=== PATIENT | female | born 1990 | race Caucasian/White ===

== ENCOUNTER 2018-01-09 22:50 | Inpatient (IN) | payer MEDICAID, OTHER ==
[~2018-01-09] VITALS: Ht 167.6 cm; Wt 115.2 kg
[~2018-01-09 22:50] MED LIST: ARIP15TA2 PO; BUPR-93 PO
[2018-01-09] MEDS ORDERED: HYDR50CA10 PO (23:19)
[2018-01-09] MEDS ORDERED: LURA20TA PO (23:19)
[2018-01-09] MEDS ORDERED: GABA-531 PO (23:19)
[2018-01-09 23:25] LABS: BASOPHILS % (AUTO) 0.7 % (0.0-2.0); EOSINOPHILS % (AUTO) 4.2 % (1.0-6.0); HEMATOCRIT 35.6 % (36-46); HEMOGLOBIN 12.2 g/dL (12.0-16.0); LYMPHOCYTES # (AUTO) 2.5 K/uL (1.0-4.8); LYMPHOCYTES % (AUTO) 31.1 % (22.0-44.0); MEAN CORPUSCULAR HEMOGLOBIN 28.2 pg (26.0-34.0); MEAN CORPUSCULAR HGB CONC 34.3 G/dL (31.0-37.0); MEAN CORPUSCULAR VOLUME 82 fL (80-100); MONOCYTES # (AUTO) 0.6 K/uL (0.1-1.0); MONOCYTES % (AUTO) 7.7 % (2.0-9.0); NEUTROPHILS # (AUTO) 4.5 K/uL (1.8-7.7); NEUTROPHILS % (AUTO) 56.3 % (40.0-70.0); PLATELET COUNT (AUTO) 345 K/uL (150-450); RED BLOOD CELL COUNT(AUTO) 4.32 MIL/uL (4.00-5.20); RED CELL DISTRIBUTION WIDTH 13.6 % (11.5-14.5)
[2018-01-09 23:32] LABS: AMPHET/METH SCREEN,URINE NEGATIVE (NEGATIVE); BARBITURATE SCREEN, URINE NEGATIVE (NEGATIVE); BENZODIAZEPINES SCREEN,URINE NEGATIVE (NEGATIVE); CANNABINOID SCREEN,URINE NEGATIVE (NEGATIVE); COCAINE SCREEN,URINE NEGATIVE (NEGATIVE); METHADONE SCREEN, URINE NEGATIVE (NEGATIVE); OPIATE SCREEN,URINE NEGATIVE (NEGATIVE)
[2018-01-09 23:33] LABS: ANION GAP 6 mmol/L (8-16); CALCIUM, TOTAL 8.5 mg/dL (8.8-10.5); CARBON DIOXIDE 28 mmol/L (22-29); CHLORIDE 105 mmol/L (98-107); CREATININE 0.74 mg/dL (0.60-1.30); GLOMERULAR FILTR. RATE CALC > 60 mL/min (>60); GLUCOSE,RANDOM 105 mg/dL (70-110); POTASSIUM 3.9 mmol/L (3.5-5.1); SODIUM SERUM 139 mmol/L (136-145); UREA NITROGEN, BLOOD 11 mg/dL (7-18)
[2018-01-09 23:34] LABS: PHENCYCLIDINE SCREEN,URINE NEGATIVE (NEGATIVE)
[2018-01-09 23:40] LABS: ALANINE AMINOTRANSFERASE 37 U/L (12-78); ALBUMIN 3.4 g/dL (3.4-5.0); ALKALINE PHOSPHATASE 54 U/L (46-116); ASPARTATE AMINOTRANSFERASE 21 U/L (15-37); BILIRUBIN,TOTAL 0.2 mg/dL (0.1-1.0); TOTAL PROTEIN, SERUM 7.1 g/dL (6.4-8.2)
[2018-01-09 23:55] LABS: ACETAMINOPHEN < 2 mcg/mL (10-30)
[2018-01-09 23:57] LABS: SALICYLATE < 2.8 mg/dL (2.8-20.0)
[2018-01-10] MEDS ORDERED: LORazepam 2 MG TABLET PO PRN (00:15)
[2018-01-10] MEDS ORDERED: MAG HYDROX/AL HYDROX/SIMETH ES 30 ML SUSPENSION UDCUP PO PRN (00:15)
[2018-01-10] MEDS ORDERED: HALOPERIDOL 5 MG TABLET PO PRN (00:15)
[2018-01-10] MEDS ORDERED: ACETAMINOPHEN 325 MG TABLET PO PRN (00:15)
[2018-01-10] MEDS ORDERED: ZOLPIDEM TARTRATE 10 MG TABLET PO PRN (00:15)
[2018-01-10] MEDS ORDERED: MAGNESIUM HYDROXIDE SUSPENSION 30 ML UDCUP PO PRN (00:15)
[2018-01-10] MEDS ORDERED: ACETAMINOPHEN 325 MG TABLET PO ONE (14:15)
[2018-01-10 18:42] VITALS: BP 115/64
[2018-01-10] MEDS ORDERED: ALBUTEROL SULFATE HFA 90 MCG/PUFF 8 GM INHALER IH PRN (19:30)
[2018-01-10] MEDS ORDERED: BACITRACIN 28.4 GM OINTMENT TP PRN (19:30)
[2018-01-10] MEDS ORDERED: PNEUMOCOCCAL VACCINE POLYVALENT 0.5 ML VIAL [PPSV23] IM ONE (19:30)
[2018-01-10] MEDS: MIRTAZAPINE 15 MG TABLET PO SCH (20:54)
[2018-01-11 05:43] VITALS: BP 117/74
[2018-01-11 08:09] LABS: CHOL/HDL RATIO 4.4 (3.9-5.7)
[2018-01-11 08:24] VITALS: BP 122/68
[2018-01-11] MEDS: GABAPENTIN 300 MG CAPSULE PO SCH ×2 (10:12→16:12)
[2018-01-11] MEDS: BuPROPion HCL XL 150 MG ER TABLET PO SCH (10:12)
[2018-01-11] MEDS: ARIPiprazole 5 MG TABLET PO SCH (10:12)
[2018-01-11] MEDS ORDERED: ONDANSETRON HCL 4 MG TABLET PO PRN (14:15)
[2018-01-11] MEDS ORDERED: DOCUSATE SODIUM 100 MG CAPSULE PO PRN (14:15)
[2018-01-11] MEDS ORDERED: IBUPROFEN 400 MG TABLET PO PRN (14:15)
[2018-01-11] MEDS ORDERED: PETROLATUM,WHITE 71 GM JELLY TP PRN (14:15)
[2018-01-11 16:37] VITALS: BP 117/68
[2018-01-11] MEDS: MIRTAZAPINE 15 MG TABLET PO SCH (20:12)
[2018-01-11] MEDS: HydrOXYzine PAMOATE 50 MG CAPSULE PO SCH (20:12)
[2018-01-12 06:22] VITALS: BP 126/74
[2018-01-12 08:38] VITALS: BP 131/74
[2018-01-12] MEDS: GABAPENTIN 300 MG CAPSULE PO SCH ×2 (08:42→16:34)
[2018-01-12] MEDS: BuPROPion HCL XL 150 MG ER TABLET PO SCH (08:42)
[2018-01-12] MEDS: ARIPiprazole 5 MG TABLET PO SCH (08:42)
[2018-01-12] MEDS: NICOTINE 14 MG/24 HOUR PATCH TD SCH (08:42)
[2018-01-12 16:07] VITALS: BP 112/85
[2018-01-12] MEDS: MIRTAZAPINE 30 MG TABLET PO SCH (20:25)
[2018-01-12] MEDS: HydrOXYzine PAMOATE 50 MG CAPSULE PO SCH (20:26)
[2018-01-13 03:30] VITALS: BP 122/82
[2018-01-13 08:36] VITALS: BP 119/78
[2018-01-13] MEDS: NICOTINE 14 MG/24 HOUR PATCH TD SCH (09:00)
[2018-01-13] MEDS: ARIPiprazole 5 MG TABLET PO SCH (09:03)
[2018-01-13] MEDS: BuPROPion HCL XL 150 MG ER TABLET PO SCH (09:04)
[2018-01-13] MEDS: GABAPENTIN 300 MG CAPSULE PO SCH ×2 (09:04→16:07)
[2018-01-13 16:09] VITALS: BP 133/78
[2018-01-13] MEDS: HydrOXYzine PAMOATE 50 MG CAPSULE PO SCH (20:16)
[2018-01-13] MEDS: MIRTAZAPINE 30 MG TABLET PO SCH (20:16)
[2018-01-14 00:42] VITALS: BP 124/76
[2018-01-14] MEDS ORDERED: MIRT30 PO (06:22)
[2018-01-14] MEDS ORDERED: BUPR-93 PO (06:23)
[2018-01-14] MEDS ORDERED: ARIP5TAB8 PO (06:23)
[2018-01-14 08:00] VITALS: BP 132/77
[2018-01-14] MEDS: ARIPiprazole 5 MG TABLET PO SCH (08:29)
[2018-01-14] MEDS: GABAPENTIN 300 MG CAPSULE PO SCH (08:29)
[2018-01-14] MEDS: BuPROPion HCL XL 150 MG ER TABLET PO SCH (08:29)
[2018-01-14] MEDS: NICOTINE 14 MG/24 HOUR PATCH TD SCH (08:30)
== END 2018-01-14 10:45 | disposition home or self-care (01) | DRG 751 ==
LOC: EDBD 22:51 → EMS 22:51 → B2S 01-10 17:25
PROVIDERS: ADMIT Psychiatry & Neurology Psychiatry; ATTEND Psychiatry & Neurology Psychiatry
PROC: 3E0234Z Introduction of Serum, Toxoid and Vaccine into Muscle, Percutaneous Approach (ICD-10-PCS; principal; 2018-01-10)
DX: F33.3 Major depressive disorder, recurrent, severe with psychotic symptoms (principal); F41.9 Anxiety disorder, unspecified; F17.200 Nicotine dependence, unspecified, uncomplicated; T42.6X2A Poisoning by other antiepileptic and sedative-hypnotic drugs, intentional self-harm, initial encounter; F12.90 Cannabis use, unspecified, uncomplicated; G47.00 Insomnia, unspecified; J45.909 Unspecified asthma, uncomplicated; F60.3 Borderline personality disorder; K59.09 Other constipation; S51.811A Laceration without foreign body of right forearm, initial encounter; X78.9XXA Intentional self-harm by unspecified sharp object, initial encounter; Y92.89 Other specified places as the place of occurrence of the external cause; Z91.5 Personal history of self-harm; Z23 Encounter for immunization; Z79.899 Other long term (current) drug therapy; Z71.6 Tobacco abuse counseling
CPT/HCPCS: 84443; 93005; 99285; G0480; G0481

== ENCOUNTER 2023-03-17 03:22 | Inpatient (IN) | payer MEDICAID, OTHER ==
[~2023-03-17] VITALS: Ht 170.2 cm; Wt 129.3 kg
[~2023-03-17 03:22] MED LIST changes: -ARIP15TA2 PO; +ARIP5TAB37 PO; +BUPR-50 PO; -BUPR-93 PO; +GABA-1181 PO; +HYDR50CA7 PO; +MIRT-149 PO
[2023-03-17] MEDS ORDERED: DiphenhydrAMINE HCL 25 MG CAPSULE PO ONE (04:00)
[2023-03-17] MEDS ORDERED: LORazepam 2 MG TABLET PO ONE (04:00)
[2023-03-17 04:12] LABS: AMPHET/METH SCREEN,URINE NEGATIVE (NEGATIVE); BARBITURATE SCREEN, URINE NEGATIVE (NEGATIVE); BENZODIAZEPINES SCREEN,URINE NEGATIVE (NEGATIVE); CANNABINOID SCREEN,URINE POSITIVE (NEGATIVE); COCAINE SCREEN,URINE NEGATIVE (NEGATIVE); METHADONE SCREEN, URINE NEGATIVE (NEGATIVE); OPIATE SCREEN,URINE NEGATIVE (NEGATIVE); PHENCYCLIDINE SCREEN,URINE NEGATIVE (NEGATIVE)
[2023-03-17 04:18] LABS: BASOPHILS % (AUTO) 1.3 % (0.0-2.0); EOSINOPHILS % (AUTO) 1.3 % (1.0-6.0); HEMATOCRIT 37.8 % (36-46); HEMOGLOBIN 12.6 g/dL (12.0-16.0); LYMPHOCYTES # (AUTO) 2.1 K/uL (1.0-4.8); LYMPHOCYTES % (AUTO) 20.3 % (22.0-44.0); MEAN CORPUSCULAR HEMOGLOBIN 27.9 pg (26.0-34.0); MEAN CORPUSCULAR HGB CONC 33.4 G/dL (31.0-37.0); MEAN CORPUSCULAR VOLUME 84 fL (80-100); MONOCYTES # (AUTO) 0.6 K/uL (0.1-1.0); MONOCYTES % (AUTO) 5.8 % (2.0-9.0); NEUTROPHILS # (AUTO) 7.3 K/uL (1.8-7.7); NEUTROPHILS % (AUTO) 71.3 % (40.0-70.0); PLATELET COUNT (AUTO) 383 K/uL (150-450); RED BLOOD CELL COUNT(AUTO) 4.52 MIL/uL (4.00-5.20); RED CELL DISTRIBUTION WIDTH 13.5 % (11.5-14.5)
[2023-03-17 04:25] LABS: ANION GAP 10 mmol/L (8-16); CARBON DIOXIDE 28 mmol/L (22-29); CHLORIDE 102 mmol/L (98-107); GLOMERULAR FILTR. RATE CALC > 60 mL/min (>60); GLUCOSE,RANDOM 113 mg/dL (70-110); POTASSIUM 3.6 mmol/L (3.5-5.1); SODIUM SERUM 139 mmol/L (136-145)
[2023-03-17] MEDS ORDERED: ZOLPIDEM TARTRATE 10 MG TABLET PO PRN (04:30)
[2023-03-17] MEDS ORDERED: HALOPERIDOL 5 MG TABLET PO PRN (04:30)
[2023-03-17 04:31] LABS: ALANINE AMINOTRANSFERASE 13 U/L (12-78); ALBUMIN 3.3 g/dL (3.4-5.0); ALKALINE PHOSPHATASE 52 U/L (46-116); ASPARTATE AMINOTRANSFERASE 13 U/L (15-37); BILIRUBIN,TOTAL 0.3 mg/dL (0.1-1.0)
[2023-03-17 11:43] LABS: COVID AG,FIA SOURCE NASAL SWAB
[2023-03-17 22:53] VITALS: BP 128/87; PULSE 95; RESP 18; TEMP 98.2; O2SAT 95
[2023-03-18 08:56] VITALS: BP 126/90; PULSE 83; RESP 18; TEMP 97.7; O2SAT 96
[2023-03-18] MEDS: LORazepam 2 MG TABLET PO PRN ×2 (09:29→19:09)
[2023-03-18 20:09] VITALS: BP 141/100; PULSE 119; RESP 20; TEMP 98.8; O2SAT 97
[2023-03-18] MEDS: HydrOXYzine PAMOATE 50 MG CAPSULE PO SCH (20:29)
[2023-03-18] MEDS: MIRTAZAPINE 30 MG TABLET PO SCH (20:29)
[2023-03-19 08:39] VITALS: BP 147/71; PULSE 97; RESP 19; TEMP 97.8; O2SAT 96
[2023-03-19] MEDS: ARIPiprazole 5 MG TABLET PO SCH (09:20)
[2023-03-19] MEDS: BuPROPion HCL XL 150 MG ER TABLET PO SCH (09:20)
[2023-03-19] MEDS: GABAPENTIN 300 MG CAPSULE PO SCH ×2 (09:20→16:36)
[2023-03-19 20:11] VITALS: BP 127/67; PULSE 101; RESP 20; TEMP 97.7; O2SAT 94
[2023-03-19] MEDS: HydrOXYzine PAMOATE 50 MG CAPSULE PO SCH (20:40)
[2023-03-19] MEDS: MIRTAZAPINE 30 MG TABLET PO SCH (20:40)
[2023-03-20 08:33] VITALS: BP 137/85; PULSE 97; RESP 19; TEMP 97.8; O2SAT 96
[2023-03-20] MEDS: ARIPiprazole 5 MG TABLET PO SCH (09:19)
[2023-03-20] MEDS: GABAPENTIN 300 MG CAPSULE PO SCH (09:19)
[2023-03-20] MEDS: BuPROPion HCL XL 150 MG ER TABLET PO SCH (09:19)
== END 2023-03-20 11:55 | disposition home or self-care (01) | DRG 750 ==
LOC: EMS 03:25 → B2S 14:21
PROVIDERS: ADMIT Psychiatry & Neurology Child & Adolescent Psychiatry; ATTEND Psychiatry & Neurology Child & Adolescent Psychiatry
DX: F25.1 Schizoaffective disorder, depressive type (principal); R45.851 Suicidal ideations; Z20.822 Contact with and (suspected) exposure to COVID-19; F32.9 Major depressive disorder, single episode, unspecified; Z79.899 Other long term (current) drug therapy
CPT/HCPCS: 80053; 80307; 85025; 99285; G0480

== ENCOUNTER 2023-08-14 15:17 | Inpatient (IN) | payer MEDICAID ==
[~2023-08-14] VITALS: Ht 167.6 cm; Wt 109.8 kg
[2023-08-14] MEDS ORDERED: OLANZapine 5 MG RAPDIS TABLET PO PRN (17:45)
[2023-08-14] MEDS ORDERED: LORazepam 2 MG TABLET PO PRN (17:45)
[2023-08-14] MEDS ORDERED: ZOLPIDEM TARTRATE 10 MG TABLET PO PRN (17:45)
[2023-08-14] MEDS ORDERED: DOCU-385 PO (18:39)
[2023-08-14] MEDS ORDERED: HEPA500018 SQ (18:40)
[2023-08-14] MEDS ORDERED: PANT-31 PO (18:41)
[2023-08-14] MEDS ORDERED: ACET-2247 PO (18:43)
[2023-08-14] MEDS ORDERED: BISA10SU11 PR (18:43)
[2023-08-14 21:53] VITALS: BP 134/92; PULSE 98; RESP 18; TEMP 97.5; O2SAT 97
[2023-08-14] MEDS ORDERED: PNEUMOCOCCAL VACCINE POLYVALENT 0.5 ML SYRINGE [PPSV23] IM. ONE (22:15)
[2023-08-14] MEDS ORDERED: INFLUENZA VIRUS VACCINE QVS 2023-24 (6MO+)/PF 60 MCG/0.5 ML SYRINGE IM. ONE (22:15)
[2023-08-15] MEDS ORDERED: DOCUSATE SODIUM 100 MG CAPSULE PO PRN (05:45)
[2023-08-15] MEDS ORDERED: LOPERAMIDE HCL 2 MG CAPSULE PO PRN (05:45)
[2023-08-15] MEDS ORDERED: PETROLATUM,WHITE 28 GM JELLY TP PRN (05:45)
[2023-08-15] MEDS ORDERED: MAG HYDROX/ALUMINUM HYD/SIMETH ES 30 ML SUSPENSION UDCUP PO PRN (05:45)
[2023-08-15] MEDS ORDERED: CloNIDine HCL 0.1 MG TABLET PO PRN (05:45)
[2023-08-15] MEDS ORDERED: MAGNESIUM HYDROXIDE SUSPENSION 30 ML UDCUP PO PRN (05:45)
[2023-08-15] MEDS ORDERED: OMEPRAZOLE 20 MG CAPSULE PO PRN (05:45)
[2023-08-15] MEDS ORDERED: BACITRACIN 28 GM OINTMENT TP PRN (05:45)
[2023-08-15] MEDS ORDERED: ALBUTEROL SULFATE HFA 90 MCG/PUFF 8 GM INHALER IH PRN (05:45)
[2023-08-15] MEDS ORDERED: IBUPROFEN 600 MG TABLET PO PRN (05:45)
[2023-08-15] MEDS ORDERED: ONDANSETRON HCL 4 MG TABLET PO PRN (05:45)
[2023-08-15] MEDS ORDERED: BENZOCAINE/MENTHOL LOZENGE PO PRN (05:45)
[2023-08-15 08:39] VITALS: BP 136/85; PULSE 100; RESP 18; TEMP 97.7; O2SAT 98
[2023-08-15 15:21] VITALS: RESP 17
[2023-08-15] MEDS: ACETAMINOPHEN 325 MG TABLET PO PRN (15:21)
[2023-08-15 16:21] VITALS: RESP 16
[2023-08-15 20:00] VITALS: BP 128/70; PULSE 87; RESP 18; TEMP 97.3
[2023-08-16 06:35] VITALS: RESP 18
[2023-08-16] MEDS: ACETAMINOPHEN 325 MG TABLET PO PRN (06:39)
[2023-08-16 07:39] VITALS: RESP 17
[2023-08-16 08:05] VITALS: BP 140/80; PULSE 100; RESP 18; TEMP 97.6; O2SAT 98
[2023-08-16 08:18] LABS: APPEARANCE,URINE TURBID (CLEAR); BILIRUBIN,URINE NEGATIVE (NEGATIVE); GLUCOSE, URINE (UA) NEGATIVE (NEGATIVE); KETONES,URINE NEGATIVE (NEGATIVE); LEUKOCYTE ESTERASE ,URINE NEGATIVE (NEGATIVE); NITRATE,URINE NEGATIVE (NEGATIVE); OCCULT BLOOD,URINE NEGATIVE (NEGATIVE); PROTEIN,URINE NEGATIVE (NEGATIVE); UROBILINOGEN,URINE <=1.0 mg/dL (<=1.0)
[2023-08-16 08:20] LABS: COLOR,URINE YELLOW (YELLOW)
[2023-08-16 08:24] LABS: ALCOHOL, URINE DRUG SCREEN NEGATIVE (NEGATIVE); AMPHET/METH SCREEN,URINE NEGATIVE (NEGATIVE); BARBITURATE SCREEN, URINE NEGATIVE (NEGATIVE); BENZODIAZEPINES SCREEN,URINE NEGATIVE (NEGATIVE); CANNABINOID SCREEN,URINE POSITIVE (NEGATIVE); COCAINE SCREEN,URINE NEGATIVE (NEGATIVE); METHADONE SCREEN, URINE NEGATIVE (NEGATIVE); OPIATE SCREEN,URINE NEGATIVE (NEGATIVE); PHENCYCLIDINE SCREEN,URINE NEGATIVE (NEGATIVE)
[2023-08-20 08:06] LABS: HEPATITIS C AB (EIA) Non Reactive (Non Reactive)
== END 2023-08-16 12:42 | disposition left against medical advice (07) | DRG 751 ==
LOC: B2S 21:34
PROVIDERS: ADMIT Psychiatry & Neurology Psychiatry; ATTEND Psychiatry & Neurology Psychiatry
PROC: GZHZZZZ Group Psychotherapy (ICD-10-PCS; principal; 2023-08-16)
PROC: GZ56ZZZ Individual Psychotherapy, Supportive (ICD-10-PCS; 2023-08-16)
DX: F33.2 Major depressive disorder, recurrent severe without psychotic features (principal); R45.851 Suicidal ideations; Z91.199 Patient's noncompliance with other medical treatment and regimen due to unspecified reason; E66.01 Morbid (severe) obesity due to excess calories; G47.00 Insomnia, unspecified; F41.0 Panic disorder [episodic paroxysmal anxiety]; Z53.29 Procedure and treatment not carried out because of patient's decision for other reasons; F12.90 Cannabis use, unspecified, uncomplicated; J45.909 Unspecified asthma, uncomplicated; Z91.51 Personal history of suicidal behavior; Z91.52 Personal history of nonsuicidal self-harm; Z68.39 Body mass index [BMI] 39.0-39.9, adult
CPT/HCPCS: 80307; 81003; 84703; 86803; 87081; 87340